=== PATIENT | female | born 1940 | race Caucasian/White ===

== ENCOUNTER 2024-02-21 21:19 | Emergency (ER) | payer MEDICARE, SELFPAY ==
[2024-02-21 21:23] VITALS: BP 170/80
[2024-02-21 21:42] VITALS: BP 152/74
--- NOTE | 2024-02-21 22:02 | ED.GENMED ---
History of Present Illness
General
Chief Complaint: Eye Problems
Source: patient
Exam Limitations: none
Time Seen by Provider: 02/21/24 21:47
History of Present Illness
History of Present Illness:
See MDM
Past History
Past History
ED Past Medical History: HTN and Other (Macular degeneration )
ED Past Surgical History: Other (Ophthalmic )
Social History
Tobacco: Non-smoker
Alcohol: None
Phy Exam
Physical Exam
Physical Exam:
See MDM
Course
Orders/Labs/Results
Orders:
Orders
02/21/24 22:01
Erythromycin (Ilotycin) [Erythromycin 0.5% Ophthalmic Ointment] See Dose Instructions OPHTH NOW STA
Vital Signs
Initial and Last Documented VS:
Initial Vital Signs
Temp Pulse Resp BP Pulse Ox
98.1 F 80 18 170/80 97
02/21/24 21:23 02/21/24 21:23 02/21/24 21:23 02/21/24 21:23 02/21/24 21:23
Last Documented Vital Signs
Temp Pulse Resp BP Pulse Ox
98.1 F 80 18 152/74 95
02/21/24 21:23 02/21/24 21:23 02/21/24 21:23 02/21/24 21:42 02/21/24 21:45
MDM/Problems Addressed
Differential Diagnosis Includes:
HPI and MDM Narrative:
83-year-old female presenting with right eye irritation. Patient was at the eye doctor today and she received a shot in her retina for macular degeneration. Later in the day, she is already noted an itchy eye. She noted that her eye appeared red.
She denies any pain or change in her vision.
On exam, she does have injected sclera. There is no clinical signs of acute angle glaucoma. EOMI. Patient feeling better with tetracaine eyedrop. There is fluorescein uptake in the 6 o'clock position consistent with corneal abrasion.
We discussed that she likely scratched her eye while it was. When the numbing medicine wore off, she now noticed the pain
Will start erythromycin eye ointment
Physical exam
General: Well appearing and non-toxic
HEENT: protecting airway. Right eye with injected sclera. Fluorescein uptake to the 6 o'clock position. Pupil equal reactive. Negative Avani sign. No proptosis. EOMI
Neck: appears supple
CV: No evidence of cyanosis
Resp: No accessory muscle use
Abd: Non-distended
Extremities: No deformities
Neuro: alert
Psych: Normal affect
Skin: Intact
Problems Addressed including Acute and Chronic Conditions affecting care:
1. Corneal abrasion
Acuity: acute
Prognosis: stable
Details: Will start erythromycin ointment
Differential Diagnosis (but not limited to): Corneal abrasion, chemical conjunctivitis
Testing considered: Visual acuity but she denies any change in her vision
Drug therapy (if applicable): OTC meds, please see d/c instruction regarding Rx drugs
Amount and/or Complexity of Data Reviewed
Clinical info obtained from: Patient
External data reviewed: N/A
Labs I independently reviewed (but not limited to): N/A
Radiology: N/A
Pulse Ox: not hypoxic
EKG independently reviewed: N/A
Supervising Fire Marshal: N/A
Critical Care: N/A
Risk of Complication:
Social Determinants of health: Good social support
Discussed with other providers: N/A
Escalation of Care includes Admit/Obs: After being observed in the Emergency Department, pt stable for discharge.
Occasional wrong word or 'sound a like' substitutions may have occurred due to the inherent limitations of voice recognition software. Read the chart carefully and recognize, using context, where substitutions have occurred.
*Critical Care Note
Total Time (30-74mins, 75-104mins- exclusive of procedures): Not Applicable
ED Attending Note
-
Portions of this chart may have been created with voice recognition software.� Occasional wrong word or��sound alike� substitutions may have occurred due to the inherent limitations of voice recognition software.
Discharge Plan
Departure
Patient Disposition: Home (Routine Discharge)
Date of Disposition: 02/21/24
Time of Disposition: 22:02
Patient with high blood pressure during this ER visit?: Yes
Discharge Problem:
Corneal abrasion, right
Instructions: Corneal Abrasion (DC)
Prescriptions:
New
erythromycin 5 mg/gram (0.5 %) ointment
1 applic ophthalmic (eye) Q8H 5 Days Qty: 3.5 0RF
Activity Restrictions/Additional Instructions:
Please return for any worsening symptoms.
You may return at any time if you have further concerns.
Please follow up with your doctor at the first available appointment, preferably this week. Please use the ointment 3 times a day for the next 5 to 7 days.
Thank you for choosing [facility].
Interventions
Interventions:
*Risk Screen - Suicide Last Done: 02/21/24 21:21
*General Assessment Last Done: 02/21/24 21:23
*Neglect/Abuse Screening Last Done: 02/21/24 21:23
Discharge Date and Time
Print Language: MALAWIAN
[2024-02-21] MEDS: ERYTHROMYCIN 0.5% OPHTHALMIC OINTMENT 1 APPLIC OPHTH (22:10)
== END 2024-02-21 22:25 | disposition home or self-care (01) ==
LOC: EMR 21:19
PROVIDERS: EMERGENCY PHYSICIAN Student in an Organized Health Care Education/Training Program; FAMILY PHYSICIAN Internal Medicine Geriatric Medicine
DX: S05.01XA Injury of conjunctiva and corneal abrasion without foreign body, right eye, initial encounter (principal); X58.XXXA Exposure to other specified factors, initial encounter; I10 Essential (primary) hypertension; H35.30 Unspecified macular degeneration
CPT/HCPCS: 99282

== ENCOUNTER 2025-03-18 10:26 | Emergency (ER) | payer MEDICARE, SELFPAY ==
[2025-03-18 10:27] VITALS: BMI 37.4
[2025-03-18 10:30] VITALS: BP 154/61
[2025-03-18 11:16] VITALS: BP 137/70
--- NOTE | 2025-03-18 11:30 | ED.GENMED ---
History of Present Illness
General
Chief Complaint: Back Pain
Source: patient
Exam Limitations: none
Time Seen by Provider: 03/18/25 11:06
History of Present Illness
History of Present Illness:
84-year-old female presents complaining of lower back pain. She fell 3 or 4 days ago was seen by medical staff at [facility]. She was found to have a strain lumbar spine and she has been taking Tylenol however the pain has been worsening. No
associated bowel or bladder dysfunction. No numbness. She typically ambulatory with a walker and lives independently. She is on Eliquis. No head strike. No other complaints at this time
Past History
Past History
ED Past Medical History: HTN and Other (Macular degeneration )
ED Past Surgical History: Other (Ophthalmic )
Social History
Tobacco: Non-smoker
Alcohol: None
Phy Exam
Physical Exam
Physical Exam:
General: Well-appearing female no acute respiratory distress
HEENT: Normal cephalic atraumatic musculoskeletal exam: There is diffuse tenderness about the lower lumbar spine and the lumbosacral junction.
Good range of motion to the lower extremities without deformity
Neurologic exam: Good sensation and strength of lower extremities alert and oriented
Course
Orders/Labs/Results
Orders:
Orders
03/18/25 11:28
CR Lumbar Spine 2 Or 3 Views Urgent
Comment:
Reason For Exam: fall, pain
CR Pelvis - 1 Or 2 Views Urgent
Comment:
Reason For Exam: fall, pain
03/18/25 12:37
Tramadol HCl [Ultram] 50 mg PO NOW STA
03/18/25 13:06
Diazepam [Valium] 2 mg PO NOW STA
Vital Signs
Initial and Last Documented VS:
Initial Vital Signs
Temp Pulse Resp BP Pulse Ox
97.9 F 76 20 154/61 98
03/18/25 10:30 03/18/25 10:30 03/18/25 10:30 03/18/25 10:30 03/18/25 10:30
Last Documented Vital Signs
Temp Pulse Resp BP Pulse Ox
97.9 F 74 16 129/74 99
03/18/25 10:30 03/18/25 12:54 03/18/25 12:54 03/18/25 12:54 03/18/25 12:54
MDM/Problems Addressed
Differential Diagnosis Includes:
Mechanical fall with increased lower back pain. Consider lumbar strain versus fracture versus muscle spasm. No red flags to suggest cauda equina or fever to suggest infectious source. X-rays pending
*Pulse Oximetry
SaO2: 99
Oxygen Mode of Delivery: Room air
Patient hypoxic: no
*Critical Care Note
Total Time (30-74mins, 75-104mins- exclusive of procedures): Not Applicable
Update Note
Update Note:
X-ray demonstrates L4 compression fracture of the superior endplate. I suspect this is the source of the patient's discomfort. Will recommend continued use of tramadol prescribed a limited supply of low-dose Valium and Lidoderm patch. Stable for
discharge
ED Attending Note
-
Portions of this chart may have been created with voice recognition software.� Occasional wrong word or��sound alike� substitutions may have occurred due to the inherent limitations of voice recognition software.
Discharge Plan
Departure
Patient Disposition: Home (Routine Discharge)
Date of Disposition: 03/18/25
Time of Disposition: 13:07
Patient with high blood pressure during this ER visit?: No
Discharge Problem:
Compression fracture
Instructions: Vertebral compression fracture
Prescriptions:
New
lidocaine [Lidoderm] 5 % adhesive patch,medicated
1 patch topical DAILY Qty: 15 0RF
diazepam [Valium] 2 mg tablet
2 mg PO BID PRN (Reason: spasm) Qty: 7 0RF
No Action
erythromycin 5 mg/gram (0.5 %) ointment
1 applic ophthalmic (eye) Q8H 5 Days Qty: 3.5 0RF
Referrals:
Westley Zamudio DO [Family Provider, [facility]]
Activity Restrictions/Additional Instructions:
Continue with tramadol for pain. Use Lidoderm patch for additional pain relief and use muscle relaxer if needed for spasm. Avoid heavy lifting or twisting. Use your walker for ambulation. Return as needed
Interventions
Interventions:
*Risk Screen - Suicide Last Done: 03/18/25 10:31
*General Assessment Last Done: 03/18/25 11:09
*Neglect/Abuse Screening Last Done: 03/18/25 10:31
*ED- Fall Risk Assessment Last Done: 03/18/25 11:09
ED-Musculoskeletal Assessment Last Done: 03/18/25 11:09
Discharge Date and Time
Print Language: CROATIAN
[2025-03-18] MEDS: ULTRAM 50 MG PO (12:47)
[2025-03-18 12:54] VITALS: BP 129/74
[2025-03-18] MEDS: VALIUM 2 MG PO (13:21)
[2025-03-18 14:54] VITALS: BP 134/74
[2025-03-18 15:18] VITALS: BP 170/76
== END 2025-03-18 14:55 | disposition home or self-care (01) ==
LOC: EMR 10:26
PROVIDERS: EMERGENCY PHYSICIAN Emergency Medicine; FAMILY PHYSICIAN Student in an Organized Health Care Education/Training Program
DX: S32.040A Wedge compression fracture of fourth lumbar vertebra, initial encounter for closed fracture (principal); W19.XXXA Unspecified fall, initial encounter; I10 Essential (primary) hypertension; H35.30 Unspecified macular degeneration; Z79.01 Long term (current) use of anticoagulants
CPT/HCPCS: 99283; 72100; 72170

== ENCOUNTER → 2025-05-24 12:06 | Outpatient (REF) | payer MEDICARE, SELFPAY | LOC: MRI 3T 12:06 | PROVIDERS: ATTENDING PHYSICIAN Physician Assistant Medical; FAMILY PHYSICIAN Student in an Organized Health Care Education/Training Program | DX: M48.062 Spinal stenosis, lumbar region with neurogenic claudication (principal) | CPT/HCPCS: 72148 ==